=== PATIENT | female | born 1960 | race Two or more races ===

== ENCOUNTER 2016-08-17 06:44 | Emergency (ER) | payer MEDICAID ==
[~2016-08-17] VITALS: Ht 157.5 cm; Wt 74.0 kg
[~2016-08-17 06:44] MED LIST: ASA PO; ATOR80TA76 PO; GLIP5TAB12 PO; LEVOTHYROXINE PO; LOSA50TA20 PO; METFORMIN PO; OMEPRAZOLE PO
[2016-08-17] MEDS ORDERED: FAMOTIDINE 20MG/2ML VIAL IV STA (07:14)
[2016-08-17] MEDS ORDERED: MORPHINE SULFATE 4 MG/ML CPJ (NOT FOR IM USE) IV STA (07:14)
[2016-08-17] MEDS ORDERED: ONDANSETRON HCL 4MG/2ML VIAL IV STA (07:14)
[2016-08-17] MEDS ORDERED: SODIUM CHLORIDE 0.9% 1,000 ML IV ONE (07:14)
[2016-08-17 07:36] LABS: HEMATOCRIT. 44.5 % (36.0-48.0); MEAN CORPUSCULAR HEMOGLOBIN 29.1 pg (28.0-32.0); MEAN CORPUSCULAR HGB CONC 33.8 g/dL (31.0-37.0); MEAN CORPUSCULAR VOLUME 86.2 fL (81.0-99.0); PLATELET 265 x1000/uL (130-400); RED BLOOD CELL COUNT 5.16 mill/uL (4.2-5.4); RED CELL DISTRIBUTION WIDTH 14.1 % (11.6-14.6); WHITE BLOOD COUNT 13.1 x1000/uL (4.5-11.0)
[2016-08-17 07:39] LABS: DIFFERENTIAL COMMENT 1
[2016-08-17 07:44] LABS: PROTHROMBIN TIME 10.4 sec
[2016-08-17 07:49] LABS: ALANINE AMINOTRANSFERASE 45 IU/L (13-61); ALBUMIN 3.6 g/dL (3.4-5.0); ANION GAP 16; CALCIUM 9.2 mg/dL (8.5-10.1); CARBON DIOXIDE 25 mEq/L (21-32); CHLORIDE 101 mEq/L (98-107); INDEX HEMOLYSI 1 (1-3); INDEX ICTERIC 1 (1-4); INDEX LIPEMIC 1 (1-3); LIPASE 670 IU/L (73-393); UREA NITROGEN BLOOD 16 mg/dL (7-21); eGFR > 60 mL/min (>60)
[2016-08-17 08:08] LABS: PLATELET ESTIMATE NORMAL
[2016-08-17 11:09] LABS: CLARITY URINE CLEAR (CLEAR); COLOR URINE YELLOW (YELLOW); GLUCOSE URINE NEGATIVE (NEGATIVE); KETONES URINE NEGATIVE (NEGATIVE); LEUKOCYTE ESTERASE URINE NEGATIVE (NEGATIVE); NITRITE URINE NEGATIVE (NEGATIVE); OCCULT BLOOD URINE NEGATIVE (NEGATIVE); PH URINE 7.5 (4.5-8.0); PROTEIN URINE NEGATIVE (NEGATIVE); SPECIFIC GRAVITY URINE 1.015 (1.005-1.030); UROBILINOGEN URINE 0.2 E.U./dL (0.2-1.0)
[2016-08-17] MEDS ORDERED: ONDANSETRON HCL 4MG/2ML VIAL IV ONE (13:00)
[2016-08-17 15:31] VITALS: BP 123/66
== END 2016-08-17 15:42 | disposition home or self-care (01) ==
LOC: ER 07:37
DX: K76.0 Fatty (change of) liver, not elsewhere classified (principal); R10.13 Epigastric pain; R11.10 Vomiting, unspecified; E11.9 Type 2 diabetes mellitus without complications; E03.9 Hypothyroidism, unspecified; Z79.84 Long term (current) use of oral hypoglycemic drugs
CPT/HCPCS: 36415; 76705; 80053; 81003; 82962; 83690; 85025; 85610; 96361; 96374; 96375; 96376; 99285; J2270; J2405; J3490; Z7610; J7030

== ENCOUNTER 2017-05-25 15:50 | Emergency (ER) | payer MEDICAID ==
[~2017-05-25] VITALS: Ht 152.4 cm; Wt 72.0 kg
[~2017-05-25 15:50] MED LIST changes: +ATOR-2 PO; -ATOR80TA76 PO
[2017-05-25] MEDS ORDERED: ACETAMINOPHEN WITH CODEINE 300/30MG TABLET PO ONE (16:45)
[2017-05-25 18:35] VITALS: BP 165/90
== END 2017-05-25 19:20 | disposition home or self-care (01) ==
LOC: ER 16:13
DX: S63.91XA Sprain of unspecified part of right wrist and hand, initial encounter (principal); E11.9 Type 2 diabetes mellitus without complications; I10 Essential (primary) hypertension; E03.9 Hypothyroidism, unspecified; Z79.84 Long term (current) use of oral hypoglycemic drugs; W18.30XA Fall on same level, unspecified, initial encounter; Y93.89 Activity, other specified; Y92.89 Other specified places as the place of occurrence of the external cause; Y99.8 Other external cause status
CPT/HCPCS: 73110; 73130; 99284; Z7610

== ENCOUNTER 2017-06-23 08:15 | Emergency (ER) | payer MEDICAID ==
[~2017-06-23] VITALS: Ht 157.5 cm; Wt 74.0 kg
[2017-06-23 16:35] VITALS: BP 119/66
== END 2017-06-23 17:07 | disposition home or self-care (01) ==
LOC: ER 10:24
DX: J06.9 Acute upper respiratory infection, unspecified (principal); M25.561 Pain in right knee; E78.00 Pure hypercholesterolemia, unspecified; I10 Essential (primary) hypertension; E11.9 Type 2 diabetes mellitus without complications; E05.90 Thyrotoxicosis, unspecified without thyrotoxic crisis or storm; W19.XXXS Unspecified fall, sequela
CPT/HCPCS: 73562; 99284

== ENCOUNTER 2018-01-05 08:27 | Emergency (ER) | payer MEDICAID ==
[~2018-01-05] VITALS: Ht 160 cm; Wt 74.0 kg
[2018-01-05] MEDS ORDERED: DIPHENHYDRAMINE 50MG CAPSULE PO ONE (10:30)
[2018-01-05 11:22] VITALS: BP 154/88
== END 2018-01-05 11:23 | disposition home or self-care (01) ==
LOC: ER 08:27
DX: S40.862A Insect bite (nonvenomous) of left upper arm, initial encounter (principal); S40.861A Insect bite (nonvenomous) of right upper arm, initial encounter; S80.862A Insect bite (nonvenomous), left lower leg, initial encounter; S80.861A Insect bite (nonvenomous), right lower leg, initial encounter; E11.9 Type 2 diabetes mellitus without complications; I10 Essential (primary) hypertension; W57.XXXA Bitten or stung by nonvenomous insect and other nonvenomous arthropods, initial encounter; Y93.89 Activity, other specified; Y92.89 Other specified places as the place of occurrence of the external cause; Y99.8 Other external cause status; Z79.899 Other long term (current) drug therapy
CPT/HCPCS: 99283; Q0163

== ENCOUNTER 2018-04-03 17:42 | Emergency (ER) | payer MEDICAID ==
[~2018-04-03] VITALS: Ht 152.4 cm; Wt 75.0 kg
[2018-04-03] MEDS ORDERED: TETANUS, DIPHTHERIA, PERTUSSIS VAC/PF 0.5ML (>7YR OLD) IM ONE (20:30)
[2018-04-03 21:06] VITALS: BP 176/93
== END 2018-04-03 21:08 | disposition home or self-care (01) ==
LOC: ER 17:42
DX: S61.011A Laceration without foreign body of right thumb without damage to nail, initial encounter (principal); I10 Essential (primary) hypertension; E11.9 Type 2 diabetes mellitus without complications; Z79.899 Other long term (current) drug therapy; X58.XXXA Exposure to other specified factors, initial encounter; Y93.G9 Activity, other involving cooking and grilling; Y92.89 Other specified places as the place of occurrence of the external cause; Y99.8 Other external cause status
CPT/HCPCS: 90471; 90715; 99283

== ENCOUNTER 2018-06-18 18:56 | Emergency (ER) | payer MEDICAID ==
[~2018-06-18] VITALS: Ht 157.5 cm; Wt 74.0 kg
[2018-06-18 23:36] LABS: CLARITY URINE CLEAR (CLEAR); COLOR URINE YELLOW (YELLOW); KETONES URINE NEGATIVE (NEGATIVE); LEUKOCYTE ESTERASE URINE 1+ (NEGATIVE); NITRITE URINE NEGATIVE (NEGATIVE); OCCULT BLOOD URINE NEGATIVE (NEGATIVE); PROTEIN URINE 1+ (NEGATIVE); SPECIFIC GRAVITY URINE 1.023 (1.005-1.030); UROBILINOGEN URINE 0.2 E.U./dL (0.2-1.0)
[2018-06-19] MEDS ORDERED: KETOROLAC 60MG/2ML VIAL IM ONE (01:15)
[2018-06-19 01:33] VITALS: BP 132/92
== END 2018-06-19 01:39 | disposition home or self-care (01) ==
LOC: ER 19:12
DX: N39.0 Urinary tract infection, site not specified (principal); J06.9 Acute upper respiratory infection, unspecified; I10 Essential (primary) hypertension; E11.9 Type 2 diabetes mellitus without complications; E03.9 Hypothyroidism, unspecified; Z79.84 Long term (current) use of oral hypoglycemic drugs
CPT/HCPCS: 71045; 81003; 87804; 96372; 99284; J1885

== ENCOUNTER 2018-11-15 06:51 | Emergency (ER) | payer MEDICAID ==
[~2018-11-15] VITALS: Ht 157.5 cm; Wt 75.0 kg
[~2018-11-15 06:51] MED LIST changes: -LOSA50TA20 PO; +LOSA50TA41 PO
[2018-11-15] MEDS ORDERED: ACETAMINOPHEN 500MG TABLET PO ONE (08:30)
[2018-11-15 09:28] VITALS: BP 145/82
== END 2018-11-15 10:00 | disposition home or self-care (01) ==
LOC: ER 07:15
DX: J06.9 Acute upper respiratory infection, unspecified (principal); J02.9 Acute pharyngitis, unspecified; I10 Essential (primary) hypertension; E78.00 Pure hypercholesterolemia, unspecified; E03.9 Hypothyroidism, unspecified; E11.9 Type 2 diabetes mellitus without complications; Z79.01 Long term (current) use of anticoagulants
CPT/HCPCS: 87070; 87430; 99283

== ENCOUNTER 2019-01-09 15:43 | Emergency (ER) | payer MEDICAID ==
[~2019-01-09] VITALS: Ht 152.4 cm; Wt 74.5 kg
[2019-01-09] MEDS ORDERED: SODIUM CHLORIDE 0.9% 1,000 ML IV ONE (16:25)
[2019-01-09] MEDS ORDERED: ONDANSETRON HCL 4MG/2ML INJ IV STA (16:25)
[2019-01-09] MEDS ORDERED: MECLIZINE 25MG TABLET PO ONE (16:30)
[2019-01-09 16:45] LABS: BASOPHILS % 1.1 % (0.0-2.0); EOSINOPHILS % 1.6 % (0.0-5.0); HEMATOCRIT. 40.4 % (36.0-48.0); LYMPHOCYTES % 37.2 % (20.0-50.0); MEAN CORPUSCULAR HEMOGLOBIN 30.3 pg (28.0-32.0); MEAN CORPUSCULAR VOLUME 87.4 fL (81.0-99.0); MEAN PLATELET VOLUME 9.1 fl (7.4-10.4); MONOCYTES % 6.9 % (2.0-8.0); NEUTROPHILS % 53.2 % (40.0-76.0); PLATELET 278 x1000/uL (130-400); RED BLOOD CELL COUNT 4.62 mill/uL (4.2-5.4); RED CELL DISTRIBUTION WIDTH 13.9 % (11.6-14.6)
[2019-01-09 16:52] LABS: CHLORIDE 106 mEq/L (98-107)
[2019-01-09 18:31] LABS: CLARITY URINE CLEAR (CLEAR); COLOR URINE YELLOW (YELLOW); KETONES URINE 1+ (NEGATIVE); LEUKOCYTE ESTERASE URINE 3+ (NEGATIVE); NITRITE URINE NEGATIVE (NEGATIVE); OCCULT BLOOD URINE NEGATIVE (NEGATIVE); PH URINE 6.5 (4.5-8.0); PROTEIN URINE NEGATIVE (NEGATIVE); SPECIFIC GRAVITY URINE 1.013 (1.005-1.030); UROBILINOGEN URINE 0.2 E.U./dL (0.2-1.0)
[2019-01-09 19:58] VITALS: BP 143/81
== END 2019-01-09 21:35 | disposition home or self-care (01) ==
LOC: ER 15:43
DX: R42 Dizziness and giddiness (principal); E11.9 Type 2 diabetes mellitus without complications; E78.00 Pure hypercholesterolemia, unspecified; I10 Essential (primary) hypertension; E03.9 Hypothyroidism, unspecified; Z79.899 Other long term (current) drug therapy
CPT/HCPCS: 36415; 80053; 81003; 82962; 85025; 93005; 96361; 96374; 99284; J2405; J7030; J8597; Z7610

== ENCOUNTER 2019-02-15 07:13 | Emergency (ER) | payer MEDICAID ==
[~2019-02-15] VITALS: Ht 162.6 cm; Wt 85.0 kg
[2019-02-15 07:44] VITALS: BP 155/100
== END 2019-02-15 11:34 | disposition home or self-care (01) ==
LOC: ER 07:30
DX: S93.602A Unspecified sprain of left foot, initial encounter (principal); E11.9 Type 2 diabetes mellitus without complications; E78.00 Pure hypercholesterolemia, unspecified; I10 Essential (primary) hypertension; E03.9 Hypothyroidism, unspecified; Z79.899 Other long term (current) drug therapy; X50.1XXA Overexertion from prolonged static or awkward postures, initial encounter; Y93.01 Activity, walking, marching and hiking; Y92.89 Other specified places as the place of occurrence of the external cause; Y99.8 Other external cause status
CPT/HCPCS: 73630; 99283

== ENCOUNTER 2019-03-27 06:34 | Emergency (ER) | payer MEDICAID ==
[~2019-03-27] VITALS: Ht 157.5 cm; Wt 74.0 kg
[2019-03-27] MEDS ORDERED: ALBUTEROL (0.083%) 2.5MG/3ML NEB HHN STA (09:07)
[2019-03-27 13:00] VITALS: BP 162/64
== END 2019-03-27 13:46 | disposition home or self-care (01) ==
LOC: ER 06:34
DX: J18.0 Bronchopneumonia, unspecified organism (principal); H92.03 Otalgia, bilateral; R05 Cough; R09.81 Nasal congestion; E11.9 Type 2 diabetes mellitus without complications; Z79.899 Other long term (current) drug therapy
CPT/HCPCS: 71045; 82962; 87804; 94640; 99284; J7611; Z7610

== ENCOUNTER 2019-11-22 13:52 | Emergency (ER) | payer MEDICAID ==
[~2019-11-22] VITALS: Ht 160 cm; Wt 75.0 kg
[2019-11-22] MEDS ORDERED: SODIUM CHLORIDE 0.9% 1,000 ML IV ONE (14:26)
[2019-11-22] MEDS ORDERED: ONDANSETRON HCL 4MG/2ML INJ IV STA (14:26)
[2019-11-22] MEDS ORDERED: KETOROLAC 30MG/ML VIAL IV ONE (14:45)
[2019-11-22 15:09] LABS: HEMATOCRIT. 40.6 % (36.0-48.0); HEMOGLOBIN. 13.8 g/dL (12.0-16.0); MEAN CORPUSCULAR HEMOGLOBIN 29.8 pg (28.0-32.0); MEAN CORPUSCULAR VOLUME 87.4 fL (81.0-99.0); MEAN PLATELET VOLUME 9.4 fl (7.4-10.4); PLATELET 302 x1000/uL (130-400); RED BLOOD CELL COUNT 4.64 mill/uL (4.2-5.4)
[2019-11-22 15:11] LABS: CHLORIDE 110 mEq/L (98-107)
[2019-11-22 15:14] LABS: PROTHROMBIN TIME 10.5 sec (9.6-11.0)
[2019-11-22 15:55] LABS: CLARITY URINE CLOUDY (CLEAR); COLOR URINE YELLOW (YELLOW); KETONES URINE TRACE (NEGATIVE); LEUKOCYTE ESTERASE URINE TRACE (NEGATIVE); NITRITE URINE POSITIVE (NEGATIVE); OCCULT BLOOD URINE NEGATIVE (NEGATIVE); PH URINE 5.5 (4.5-8.0); PROTEIN URINE 1+ (NEGATIVE); SPECIFIC GRAVITY URINE 1.026 (1.005-1.030); UROBILINOGEN URINE 0.2 E.U./dL (0.2-1.0)
[2019-11-22 16:19] VITALS: BP 149/80
[2019-11-22] MEDS ORDERED: CEFTRIAXONE 1 G PREMIX 50 ML IV ONE (16:30)
[2019-11-22 17:46] LABS: PLATELET ESTIMATE NORMAL
[2019-11-25 04:07] LABS: NEISSERIA GONORRHOEAE NAA Negative (Negative)
== END 2019-11-22 17:22 | disposition home or self-care (01) ==
LOC: ER 14:08
DX: N39.0 Urinary tract infection, site not specified (principal); E11.9 Type 2 diabetes mellitus without complications; E03.9 Hypothyroidism, unspecified; Z79.899 Other long term (current) drug therapy
CPT/HCPCS: 36415; 80053; 81003; 83605; 83690; 84484; 85025; 85610; 87086; 87491; 87591; 93005; 96361; 96374; 99284; J1885; J7030

== ENCOUNTER 2021-04-26 10:21 | Emergency (ER) | payer MEDICAID ==
[~2021-04-26] VITALS: Ht 157.5 cm; Wt 73.0 kg
[2021-04-26 10:31] VITALS: BP 142/75
[2021-04-26] MEDS ORDERED: ACETAMINOPHEN 325MG TABLET PO ONE (11:00)
== END 2021-04-26 12:26 | disposition home or self-care (01) ==
LOC: ER 10:21
DX: M79.632 Pain in left forearm (principal); E11.9 Type 2 diabetes mellitus without complications; I10 Essential (primary) hypertension; E78.00 Pure hypercholesterolemia, unspecified; Z79.84 Long term (current) use of oral hypoglycemic drugs
CPT/HCPCS: 73090; 99283

== ENCOUNTER 2021-08-17 09:24 | Emergency (ER) | payer MEDICAID ==
[~2021-08-17] VITALS: Ht 154.9 cm; Wt 76.0 kg
[2021-08-17 09:32] VITALS: BP 126/78
== END 2021-08-17 10:25 | disposition home or self-care (01) ==
LOC: ER 09:24
DX: H61.21 Impacted cerumen, right ear (principal); E11.9 Type 2 diabetes mellitus without complications; I10 Essential (primary) hypertension; E03.9 Hypothyroidism, unspecified; Z79.84 Long term (current) use of oral hypoglycemic drugs
CPT/HCPCS: 69209; 69210; 99282

== ENCOUNTER 2021-11-11 07:55 | Emergency (ER) | payer MEDICAID ==
[~2021-11-11] VITALS: Ht 157.5 cm; Wt 82.0 kg
[2021-11-11] MEDS ORDERED: ACETAMINOPHEN 325MG TABLET PO ONE (08:45)
[2021-11-11] MEDS ORDERED: IBUP-2029 MT (09:30)
[2021-11-11 09:56] VITALS: BP 127/86
== END 2021-11-11 09:57 | disposition home or self-care (01) ==
LOC: ER 07:57
DX: M79.672 Pain in left foot (principal); I10 Essential (primary) hypertension; E11.9 Type 2 diabetes mellitus without complications; E78.00 Pure hypercholesterolemia, unspecified; E03.9 Hypothyroidism, unspecified; Z79.84 Long term (current) use of oral hypoglycemic drugs
CPT/HCPCS: 73650; 99283

== ENCOUNTER 2021-12-03 14:13 | Emergency (ER) | payer MEDICAID ==
[~2021-12-03] VITALS: Ht 157.5 cm; Wt 77.0 kg
[~2021-12-03 14:13] MED LIST changes: +IBUP-2029 MT
[2021-12-03] MEDS ORDERED: AMOX-431 MT (18:21)
[2021-12-03] MEDS ORDERED: CHLO473M2 MT (18:21)
[2021-12-03 18:30] VITALS: BP 120/75
== END 2021-12-03 18:30 | disposition home or self-care (01) ==
LOC: ER 14:23
DX: R68.84 Jaw pain (principal); E11.9 Type 2 diabetes mellitus without complications; I10 Essential (primary) hypertension; E03.9 Hypothyroidism, unspecified; Z79.899 Other long term (current) drug therapy
CPT/HCPCS: 99281; 99283

== ENCOUNTER 2022-03-05 08:15 | Emergency (ER) | payer MEDICAID ==
[~2022-03-05] VITALS: Ht 165.1 cm; Wt 79.0 kg
[~2022-03-05 08:15] MED LIST changes: +AMOX-431 MT; +CHLO473M2 MT
[2022-03-05] MEDS ORDERED: ONDANSETRON HCL 4MG/2ML INJ IV STA (08:38)
[2022-03-05 09:23] LABS: BASOPHILS % 0.7 % (0.0-2.0); EOSINOPHILS % 0.6 % (0.0-5.0); HEMATOCRIT. 46.1 % (36.0-48.0); HEMOGLOBIN. 15.3 g/dL (12.0-16.0); MEAN CORPUSCULAR HEMOGLOBIN 29.1 pg (28.0-32.0); MEAN CORPUSCULAR VOLUME 87.9 fL (81.0-99.0); NEUTROPHILS % 56.7 % (40.0-76.0); PLATELET 253 x1000/uL (130-400); RED BLOOD CELL COUNT 5.25 mill/uL (4.2-5.4); RED CELL DISTRIBUTION WIDTH 14.3 % (11.6-14.6)
[2022-03-05 09:25] LABS: CLARITY URINE CLOUDY (CLEAR); COLOR URINE YELLOW (YELLOW); KETONES URINE NEGATIVE (NEGATIVE); LEUKOCYTE ESTERASE URINE 2+ (NEGATIVE); NITRITE URINE POSITIVE (NEGATIVE); OCCULT BLOOD URINE NEGATIVE (NEGATIVE); PH URINE 5.5 (4.5-8.0); PROTEIN URINE 1+ (NEGATIVE); SPECIFIC GRAVITY URINE 1.031 (1.005-1.030); UROBILINOGEN URINE 0.2 E.U./dL (0.2-1.0)
[2022-03-05 09:35] LABS: CHLORIDE 110 mEq/L (98-107)
[2022-03-05 09:44] LABS: ETHANOL BLOOD < 10 mg/dL
[2022-03-05] MEDS ORDERED: CIPR250S3 PO (10:21)
[2022-03-05 10:31] VITALS: BP 143/82
[2022-03-05] MEDS ORDERED: ONDA4TAB50 MT (10:32)
[2022-03-05] MEDS ORDERED: CIPR-264 PO (10:35)
[2022-03-05] MEDS ORDERED: ONDA4TAB50 PO (10:35)
[2022-03-05 11:04] LABS: *AMPHETAMINES SCREEN URINE NEGATIVE (NEGATIVE); *BARBITURATES SCREEN URINE NEGATIVE (NEGATIVE); *BENZODIAZEPINES SCREEN URINE NEGATIVE (NEGATIVE); *COCAINE SCREEN URINE NEGATIVE (NEGATIVE); CANNABINOID URINE SCREEN NEGATIVE (NEGATIVE); METHADONE URINE SCREEN NEGATIVE (NEGATIVE); OPIATES URINE SCREEN NEGATIVE (NEGATIVE); PHENCYCLIDINE URINE SCREEN NEGATIVE (NEGATIVE)
== END 2022-03-05 11:03 | disposition home or self-care (01) ==
LOC: ER 08:15
DX: N39.0 Urinary tract infection, site not specified (principal); E11.9 Type 2 diabetes mellitus without complications; I10 Essential (primary) hypertension; E03.9 Hypothyroidism, unspecified
CPT/HCPCS: 36415; 70450; 71045; 80053; 80305; 80320; 81003; 84484; 85025; 87086; 96374; 99285; J2405; G0480

== ENCOUNTER 2022-03-18 06:43 | Emergency (ER) | payer MEDICAID ==
[~2022-03-18 06:43] MED LIST changes: +CIPR-264 PO; +ONDA4TAB50 PO
== END 2022-03-18 08:31 | disposition left against medical advice (07) ==
LOC: ER 06:50
DX: Z53.21 Procedure and treatment not carried out due to patient leaving prior to being seen by health care provider (principal)

== ENCOUNTER 2024-02-23 06:46 | Emergency (ER) | payer MEDICAID ==
[~2024-02-23] VITALS: Ht 157.5 cm; Wt 73.0 kg
[~2024-02-23 06:46] MED LIST changes: -GLIP5TAB12 PO; +GLIP5TAB22 PO
[2024-02-23 07:21] VITALS: O2SAT 100
[2024-02-23 08:14] LABS: BASOPHILS % 0.6 % (0.0-2.0); EOSINOPHILS % 2.4 % (0.0-5.0); HEMATOCRIT. 44.8 % (36.0-48.0); HEMOGLOBIN. 15.4 g/dL (12.0-16.0); LYMPHOCYTES % 18.8 % (20.0-50.0); MEAN CORPUSCULAR HEMOGLOBIN 30.7 pg (28.0-32.0); MEAN CORPUSCULAR HGB CONC 34.4 g/dL (31.0-37.0); MEAN CORPUSCULAR VOLUME 89.2 fL (81.0-99.0); MEAN PLATELET VOLUME 9.5 fl (7.4-10.4); MONOCYTES % 5.4 % (2.0-8.0); NEUTROPHILS % 72.8 % (40.0-76.0); PLATELET 264 x1000/uL (130-400); RED BLOOD CELL COUNT 5.02 mill/uL (4.2-5.4); RED CELL DISTRIBUTION WIDTH 14.3 % (11.6-14.6); WHITE BLOOD COUNT 8.1 x1000/uL (4.5-11.0)
[2024-02-23] MEDS: ONDANSETRON 4MG ODT PO STA (08:15)
[2024-02-23] MEDS: FAMOTIDINE 20MG TABLET PO ONE (08:15)
[2024-02-23 08:41] LABS: INR 0.9; PROTHROMBIN TIME 10.2 sec (9.6-11.0)
[2024-02-23 08:47] LABS: CARBON DIOXIDE 25 mEq/L (21-32); CHLORIDE 106 mEq/L (98-107); POTASSIUM 3.6 mEq/L (3.5-5.1); SODIUM 138 mEq/L (136-145)
[2024-02-23 08:48] LABS: CALCIUM 9.5 mg/dL (8.7-10.4)
[2024-02-23 08:53] LABS: CREATININE 0.9 mg/dL (0.6-1.0); GLUCOSE 212 mg/dL (70-105); UREA NITROGEN BLOOD 11 mg/dL (9-23)
[2024-02-23 08:55] LABS: ALANINE AMINOTRANSFERASE 21 IU/L (10-49); ALBUMIN 4.3 g/dL (3.2-4.8); ASPARTATE AMINOTRANSFERASE 20 IU/L (<34); BILIRUBIN DIRECT 0.1 mg/dL (<=3.0); BILIRUBIN TOTAL 0.5 mg/dL (0.1-1.0); PROTEIN TOTAL 8.2 g/dL (6.0-8.3)
[2024-02-23 10:59] LABS: CLARITY URINE CLEAR (CLEAR); COLOR URINE YELLOW (YELLOW); GLUCOSE URINE NEGATIVE (NEGATIVE); KETONES URINE NEGATIVE (NEGATIVE); LEUKOCYTE ESTERASE URINE 2+ (NEGATIVE); NITRITE URINE NEGATIVE (NEGATIVE); OCCULT BLOOD URINE NEGATIVE (NEGATIVE); PH URINE 6.5 (4.5-8.0); PROTEIN URINE 2+ (NEGATIVE); SPECIFIC GRAVITY URINE 1.017 (1.005-1.030); UROBILINOGEN URINE 0.2 E.U./dL (0.2-1.0)
[2024-02-23] MEDS ORDERED: LACT1CAP68 MT (11:13)
[2024-02-23] MEDS ORDERED: CEPH250C2 MT (11:13)
[2024-02-23 11:27] LABS: BACTERIA URINE NONE SEEN; CALCIUM OXALATE CRYSTALS URINE 1+ /lpf; RBC URINE 0-2 /hpf (0-2); SQUAMOUS EPITHELIAL CELL URINE 1+ /lpf (RARE/1+); YEAST URINE NONE SEEN
[2024-02-23 11:38] VITALS: BP 154/90; PULSE 74; RESP 16; TEMP 36.78072; O2SAT 99
== END 2024-02-23 11:40 | disposition home or self-care (01) ==
LOC: ER 06:46
DX: N39.0 Urinary tract infection, site not specified (principal); K52.9 Noninfective gastroenteritis and colitis, unspecified; I10 Essential (primary) hypertension; R53.83 Other fatigue; E11.9 Type 2 diabetes mellitus without complications; Z79.899 Other long term (current) drug therapy; Z79.84 Long term (current) use of oral hypoglycemic drugs
CPT/HCPCS: 99283; 80076; 80048; 81003; 83690; 85025; 85610; 36415; Q0162

== ENCOUNTER 2024-03-19 14:45 | Emergency (ER) | payer MEDICAID ==
[~2024-03-19] VITALS: Ht 160 cm; Wt 75.2 kg
[~2024-03-19 14:45] MED LIST changes: +CEPH250C2 MT; +LACT1CAP68 MT
[2024-03-19 15:33] VITALS: TEMP 97.6; O2SAT 99
[2024-03-19] MEDS ORDERED: DEXAMETHASONE 0.5MG/5ML ORAL SYR PO ONE (18:45)
[2024-03-19] MEDS ORDERED: BACI1OIN7 TP (18:45)
[2024-03-19] MEDS: DEXAMETHASONE 4MG TABLET PO NR (20:04)
[2024-03-19] MEDS: PENICILLIN G BENZATHINE 1,200,000 UNITS/2ML SYR IM ONE (20:05)
[2024-03-19 20:09] VITALS: BP 175/85; PULSE 62; RESP 14; O2SAT 98
== END 2024-03-19 20:18 | disposition home or self-care (01) ==
LOC: ER 14:45
DX: J02.0 Streptococcal pharyngitis (principal); E11.9 Type 2 diabetes mellitus without complications; I10 Essential (primary) hypertension; E03.9 Hypothyroidism, unspecified; Z79.899 Other long term (current) drug therapy
CPT/HCPCS: 99283; 96372; J0561; J8540

== ENCOUNTER 2024-06-17 04:59 | Emergency (ER) | payer MEDICAID ==
[~2024-06-17] VITALS: Ht 157.5 cm; Wt 73.0 kg
[~2024-06-17 04:59] MED LIST changes: +BACI1OIN7 TP
[2024-06-17 05:07] VITALS: O2SAT 99
[2024-06-17] MEDS: KETOROLAC 30MG/ML VIAL IM ONE (06:22)
[2024-06-17] MEDS ORDERED: IBUP-2029 MT (06:59)
[2024-06-17] MEDS: HYDROCODONE/ACETAMINOPHEN 5/325MG TABLET PO ONE (08:31)
[2024-06-17] MEDS ORDERED: HYDR-4001 MT (09:15)
[2024-06-17 09:16] VITALS: BP 133/70; PULSE 68; RESP 18; TEMP 37; O2SAT 99
== END 2024-06-17 09:19 | disposition home or self-care (01) ==
LOC: ER 04:59
DX: M25.532 Pain in left wrist (principal); M25.531 Pain in right wrist; E03.9 Hypothyroidism, unspecified; E11.9 Type 2 diabetes mellitus without complications; I10 Essential (primary) hypertension; M17.11 Unilateral primary osteoarthritis, right knee; Z79.84 Long term (current) use of oral hypoglycemic drugs; Z79.899 Other long term (current) drug therapy
CPT/HCPCS: 82962; 93971; 73110; 93005; 96372; 99285; J1885; Z7610

== ENCOUNTER 2024-06-19 08:15 | Emergency (ER) | payer MEDICAID ==
[~2024-06-19] VITALS: Ht 157.5 cm; Wt 74.0 kg
[~2024-06-19 08:15] MED LIST changes: +HYDR-4001 MT
[2024-06-19 08:21] VITALS: O2SAT 99
[2024-06-19 08:31] VITALS: BP 117/61; PULSE 73; RESP 16; TEMP 36.8; O2SAT 97
[2024-06-19] MEDS ORDERED: METR70GE27 VG (08:47)
[2024-06-19] MEDS ORDERED: FLUC150T46 MT (08:47)
== END 2024-06-19 09:30 | disposition home or self-care (01) ==
LOC: ER 08:15
DX: N76.0 Acute vaginitis (principal); I10 Essential (primary) hypertension; E11.9 Type 2 diabetes mellitus without complications; Z79.899 Other long term (current) drug therapy; Z86.39 Personal history of other endocrine, nutritional and metabolic disease
CPT/HCPCS: 99283

== ENCOUNTER 2025-02-13 12:54 | Emergency (ER) | payer MEDICAID ==
[~2025-02-13] VITALS: Ht 157.5 cm; Wt 75.0 kg
[~2025-02-13 12:54] MED LIST changes: +FLUC150T46 MT; +IBUP-1455 MT; -IBUP-2029 MT; +METR70GE27 VG
[2025-02-13 13:30] VITALS: RESP 18; TEMP 36.5; O2SAT 99
[2025-02-13] MEDS ORDERED: CEPH500T MT (13:44)
[2025-02-13 13:52] VITALS: BP 160/71; PULSE 63; O2SAT 99
== END 2025-02-13 13:56 | disposition home or self-care (01) ==
LOC: ER 13:06
DX: L03.011 Cellulitis of right finger (principal); I10 Essential (primary) hypertension; E11.9 Type 2 diabetes mellitus without complications; E03.9 Hypothyroidism, unspecified; Z79.899 Other long term (current) drug therapy
CPT/HCPCS: 99283